=== PATIENT | female | born 1985 | race Caucasian/White ===

== ENCOUNTER 2018-10-05 12:16 | Emergency (ER) | payer MEDICAID ==
[~2018-10-05] VITALS: Ht 170.2 cm; Wt 106.4 kg
[~2018-10-05 12:16] MED LIST: BUSP10TA11 PO; CEPH250C92 PO; DICY10CA88 PO; WEL100T PO
[2018-10-05 12:24] VITALS: BP 142/97
[2018-10-05] MEDS ORDERED: aspirin 81mg tab.chew PO ONE (12:25)
[2018-10-05 13:53] LABS: BASOPHILS % (AUTO) 0.7 % (0-1); EOSINOPHILS # (AUTO) 0.1 X10'3 (0-0.9); HEMATOCRIT 41.3 % (35.0-45.0); HEMOGLOBIN 14.1 g/dl (12.0-16.0); LYMPHOCYTES # (AUTO) 1.6 X10'3 (1.1-4.8); LYMPHOCYTES % (AUTO) 30.9 % (21-51); MEAN CORPUSCULAR HEMOGLOBIN 30.2 PG (27.0-31.0); MEAN CORPUSCULAR VOLUME 88.6 FL (78-98); MEAN PLATELET VOLUME 8.8 FL (7.4-10.4); MONOCYTES # (AUTO) 0.3 X10'3 (0-0.9); MONOCYTES % (AUTO) 6.3 % (2-12); NEUTROPHILS # (AUTO) 3.2 X10'3 (1.8-7.7); NEUTROPHILS % (AUTO) 61.1 % (42-75); PLATELET COUNT 208 X10'3 (140-440); RED BLOOD COUNT 4.66 X10'6 (4.20-5.60); RED CELL DISTRIBUTION WIDTH 12.3 % (11.5-14.5); WHITE BLOOD COUNT 5.2 X10'3 (4.5-11.0)
[2018-10-05 13:59] LABS: D-DIMER 0.37 MG/L FEU (0-0.50)
[2018-10-05 14:05] LABS: ALANINE AMINOTRANSFERASE 64 U/L (12-78); ALKALINE PHOSPHATASE 81 IU/L (46-116); ANION GAP 12 (8-16); ASPARTATE AMINO TRANSFERASE 33 U/L (10-37); BILIRUBIN,TOTAL 0.3 MG/DL (0.1-1.0); BLOOD UREA NITROGEN 13 MG/DL (7-18); BUN/CREATININE RATIO 17.6 (6.6-38.0); CALCIUM 8.6 MG/DL (8.5-10.1); CHLORIDE 103 MMOL/L (99-107); CREATININE 0.74 MG/DL (0.40-0.90); GLUCOSE 101 MG/DL (70-104); POTASSIUM 3.8 MMOL/L (3.5-5.1); SODIUM 138 MMOL/L (135-145); TOTAL CARBON DIOXIDE 22.9 MMOL/L (24-32); TOTAL PROTEIN 7.9 G/DL (6.4-8.2); eGFR 89 ML/MIN
[2018-10-05 14:14] LABS: MAGNESIUM 1.8 MG/DL (1.5-2.4)
== END 2018-10-05 14:48 | disposition home or self-care (01) ==
LOC: ER 12:17
DX: R06.02 Shortness of breath (principal); R07.9 Chest pain, unspecified; R11.0 Nausea; Z88.8 Allergy status to other drugs, medicaments and biological substances; Z79.899 Other long term (current) drug therapy
CPT/HCPCS: 36415; 71045; 80053; 83735; 83880; 84484; 85025; 85379; 93005; 99284

== ENCOUNTER 2019-08-08 13:38 | Outpatient (CLI) | payer BC, MEDICAID | END 2019-08-08 23:59 | disposition home or self-care (01) | LOC: RAD 13:38 | PROVIDERS: ATTEND Student in an Organized Health Care Education/Training Program | DX: R13.14 Dysphagia, pharyngoesophageal phase (principal); K21.9 Gastro-esophageal reflux disease without esophagitis; Z79.899 Other long term (current) drug therapy; Z87.891 Personal history of nicotine dependence | CPT/HCPCS: 74230 ==

== ENCOUNTER 2020-05-01 09:44 | Outpatient (CLI) | payer BC, MEDICAID | END 2020-05-01 23:59 | disposition home or self-care (01) | LOC: RAD 09:44 | PROVIDERS: ATTEND Psychiatry & Neurology Neurology | DX: G43.909 Migraine, unspecified, not intractable, without status migrainosus (principal); R53.1 Weakness; R27.0 Ataxia, unspecified; R29.6 Repeated falls | CPT/HCPCS: 95816 ==

== ENCOUNTER 2021-03-06 18:29 | Emergency (ER) | payer BC, MEDICAID ==
[~2021-03-06] VITALS: Ht 167.6 cm; Wt 120.4 kg
[2021-03-06 18:39] VITALS: BP 146/100
[2021-03-06] MEDS ORDERED: ketorolac trometh. 30mg/ml inj. IM ONE (20:20)
== END 2021-03-06 20:52 | disposition home or self-care (01) ==
LOC: ER 18:29
DX: S43.402A Unspecified sprain of left shoulder joint, initial encounter (principal); S53.402A Unspecified sprain of left elbow, initial encounter; M79.602 Pain in left arm; M79.18 Myalgia, other site; Z72.89 Other problems related to lifestyle; Z88.8 Allergy status to other drugs, medicaments and biological substances; Z79.2 Long term (current) use of antibiotics; Z79.899 Other long term (current) drug therapy; W19.XXXA Unspecified fall, initial encounter; Y93.89 Activity, other specified; Y92.89 Other specified places as the place of occurrence of the external cause; Y99.8 Other external cause status
CPT/HCPCS: 73030; 73080; 96372; 99284; J1885

== ENCOUNTER 2021-08-31 09:22 | Outpatient (CLI) | payer BC, MEDICAID | END 2021-08-31 23:59 | disposition home or self-care (01) | LOC: RAD 09:22 | DX: R40.4 Transient alteration of awareness (principal) | CPT/HCPCS: 95816 ==

== ENCOUNTER 2022-07-06 11:17 | Outpatient (CLI) | payer MEDICAID | END 2022-07-06 23:59 | disposition home or self-care (01) | LOC: VAS 11:17 | PROVIDERS: ATTEND Internal Medicine Cardiovascular Disease | DX: I82.402 Acute embolism and thrombosis of unspecified deep veins of left lower extremity (principal) | CPT/HCPCS: 93971 ==

== ENCOUNTER 2023-03-23 14:20 | Emergency (ER) | payer MEDICAID ==
[~2023-03-23] VITALS: Ht 167.6 cm; Wt 122.0 kg
[2023-03-23 14:43] VITALS: BP 150/84
[2023-03-23 15:21] LABS: BASOPHILS % (AUTO) 0.4 % (0-1); EOSINOPHILS % (AUTO) 0.4 % (0-6); HEMATOCRIT 41.5 % (35.0-45.0); LYMPHOCYTES # (AUTO) 1.8 X10'3 (1.1-4.8); LYMPHOCYTES % (AUTO) 27.1 % (21-51); MEAN CORPUSCULAR HGB CONC 33.9 g/dL (33.0-36.5); MEAN CORPUSCULAR VOLUME 88.6 FL (78-98); MEAN PLATELET VOLUME 8.3 FL (7.4-10.4); MONOCYTES # (AUTO) 0.5 X10'3 (0-0.9); MONOCYTES % (AUTO) 6.9 % (2-12); NEUTROPHILS # (AUTO) 4.3 X10'3 (1.8-7.7); NEUTROPHILS % (AUTO) 65.2 % (42-75); PLATELET COUNT 213 X10'3 (140-440); RED BLOOD COUNT 4.68 X10'6 (4.20-5.60); RED CELL DISTRIBUTION WIDTH 13.3 % (11.5-14.5); WHITE BLOOD COUNT 6.7 X10'3 (4.5-11.0)
[2023-03-23 15:39] LABS: ALANINE AMINOTRANSFERASE 47 U/L (12-78); ALBUMIN 4.4 G/DL (3.4-5.0); ALBUMIN/GLOBULIN RATIO 1.2 (1.1-1.5); ALKALINE PHOSPHATASE 50 IU/L (46-116); ANION GAP 9 (8-16); ASPARTATE AMINO TRANSFERASE 23 U/L (10-37); BILIRUBIN,TOTAL 0.4 MG/DL (0.1-1.0); BLOOD UREA NITROGEN 12 MG/DL (7-18); BUN/CREATININE RATIO 13.5 (10.0-20.0); CALCIUM 9.3 MG/DL (8.5-10.1); CHLORIDE 102 MMOL/L (99-107); CREATININE 0.89 MG/DL (0.40-0.90); GLUCOSE 93 MG/DL (70-104); SODIUM 135 MMOL/L (135-145); TOTAL CARBON DIOXIDE 23.7 MMOL/L (24-32); TOTAL PROTEIN 8.1 G/DL (6.4-8.2); eGFR 71 ML/MIN
[2023-03-23] MEDS ORDERED: acetaminophen 325mg tablet PO ONE (16:00)
[2023-03-23 16:37] LABS: CLARITY,URINE CLEAR (Clear); COLOR,URINE YELLOW (Yellow); GLUCOSE, URINE NEGATIVE (Neg); KETONES,URINE TRACE mg/dl (Neg); LEUKOCYTE ESTERASE ,URINE SMALL (Neg); NITRITES, URINE NEGATIVE (Neg); OCCULT BLOOD,URINE NEGATIVE (Neg); PH,URINE 5.5 (4.8-8.0); PROTEIN,URINE NEGATIVE (Neg); UROBILINOGEN,URINE 0.2 E.U/dL (0.2-1.0)
[2023-03-23 16:42] LABS: UA COLLECTION TYPE VOIDED
[2023-03-23 16:45] LABS: BACTERIA,URINE 2+ /HPF (Neg); SQUAMOUS EPITHELIAL CELL,UR MODERATE /LPF (FEW)
[2023-03-23 16:46] LABS: RBC,URINE 0-2 /HPF (0-2)
[2023-03-23 17:09] LABS: URINE AMPHETAMINE SCREEN NEGATIVE (Neg); URINE BARBITUATE SCREEN NEGATIVE (Neg); URINE BENZODIAZEPINES SCREEN NEGATIVE (Neg); URINE CANNABINOID SCREEN NEGATIVE (Neg); URINE COCAINE SCREEN NEGATIVE (Neg); URINE METHADONE SCREEN NEGATIVE (Neg); URINE OPIATE SCREEN NEGATIVE (Neg); URINE PHENCYCLIDINE SCREEN NEGATIVE (Neg)
== END 2023-03-23 16:27 | disposition home or self-care (01) ==
LOC: ER 14:22
DX: R51.9 Headache, unspecified (principal); Z00.8 Encounter for other general examination; Z79.899 Other long term (current) drug therapy
CPT/HCPCS: 36415; 80053; 80305; 81001; 85025; 87088; 99283

== ENCOUNTER 2024-09-14 10:36 | Emergency (ER) | payer MEDICAID ==
[~2024-09-14] VITALS: Ht 167.6 cm; Wt 87.0 kg
[2024-09-14] MEDS: dexamethasone sod phosphate 10mg/ml inj PO STA (14:23)
[2024-09-14] MEDS: ketorolac trometh 30MG/ML vial 30 MG/ML VIAL IM ONE (14:24)
[2024-09-14] MEDS ORDERED: LIDO700A32 TOP (14:47)
[2024-09-14 14:57] VITALS: BP 131/91; PULSE 78; RESP 16; TEMP 98; O2SAT 99
== END 2024-09-14 14:58 | disposition home or self-care (01) ==
LOC: ER 10:37
DX: M25.512 Pain in left shoulder (principal); F10.90 Alcohol use, unspecified, uncomplicated
CPT/HCPCS: 96372; 99283; J1100; J1885